=== PATIENT | male | born 1935 | race Caucasian/White ===

== ENCOUNTER 2023-01-20 15:51 | Observation (INO) | payer MEDICARE, MEDICAID ==
[~2023-01-20] VITALS: Ht 177.8 cm; Wt 82.2 kg
[2023-01-20] VITALS (12 sets, daily range): BP systolic 112–140; BP diastolic 52–66
--- NOTE | 2023-01-20 15:53 | NUR ---
PT TO ROOM 6 VIA EMS STRETCHER, REPORT RECEIVED, CALL LIGHT IN REACH, PROVIDER NOTIFIED.
[2023-01-20 16:57] LABS: BASO% 0.3 % (0-3); EOS% 0.9 % (0-8); HEMATOCRIT 37.2 % (39.0-50.0); HEMOGLOBIN 11.9 g/dl (14.0-18.0); IMMATURE GRANULOCYTES 0.7 % (0.0-5.0); LYMPH% 10.1 % (15-41); MEAN CELL VOLUME 95.4 fL CALC (80.0-100.0); MEAN CORPUSCULAR HGB 30.5 pG CALC (26.0-32.0); MONO% 12.7 % (2-13); NEUT# 11.37 thou/uL (1.82-7.42); NEUT% 75.3 % (42-76); RED BLOOD COUNT 3.9 mill/uL (4.70-6.10); RED CELL DISTRI WIDTH 17.3 % (11.5-15.5)
--- NOTE | 2023-01-20 17:08 | NUR ---
DNR SIGNED PER PT REQUEST, DR. Reinier AMATO PROVIDER AT TIME.
[2023-01-20 17:10] LABS: ALBUMIN 4.1 g/dL (3.2-5.0); ALKALINE PHOSPHATASE 101 u/l (38-126); ANION GAP 12 (6-22 (CALC)); BILIRUBIN, TOTAL 0.5 mg/dL (0.2-1.3); BUN 33 mg/dL (8-23); BUN/CREATININE RATIO 19 (12-20 (CALC)); CARBON DIOXIDE 25 mmol/l (22-30); CHLORIDE 104 mmol/l (95-108); CREATININE 1.7 mg/dL (0.7-1.3); GFR FOR AFR.AMER. 46 ML/MIN (>=60 (CALC)); GFR OTHER RACES 38 ML/MIN (>=60 (CALC)); POTASSIUM 4.9 mmol/l (3.5-5.1); SGOT/AST 31 u/l (19-48); SODIUM 136 mmol/l (137-146); TOTAL PROTEIN 6.8 g/dL (6.3-8.2)
--- NOTE | 2023-01-20 17:14 | NUR ---
Reassessment of patient completed. No distress noted. I/V FLUSED S/P FLUIDS ORDERED.
[2023-01-20] MEDS ORDERED: ASPIRINCHW 81MG PO (17:18)
[2023-01-20] MEDS ORDERED: ARICEPT10 MG PO (17:19)
[2023-01-20] MEDS ORDERED: MEMANTINE HYDRO10 MG PO (17:22)
[2023-01-20] MEDS ORDERED: EZETIMIBE PO (17:24)
[2023-01-20] MEDS ORDERED: SIMVA PO (17:24)
[2023-01-20] MEDS ORDERED: SLOW FE142 MG PO (17:24)
[2023-01-20] MEDS ORDERED: SINGULAIR10 MG PO (17:25)
[2023-01-20] MEDS ORDERED: COLACE100 MG PO (17:25)
[2023-01-20] MEDS ORDERED: IPRATROPIUM BROMIDE IN (17:26)
[2023-01-20] MEDS ORDERED: TYLENOL500 MG PO (17:27)
[2023-01-20] MEDS ORDERED: HYDROCHLOROT25 MG PO (17:28)
--- NOTE | 2023-01-20 17:53 | NUR ---
Reassessment of patient completed. No distress noted. GIVEN SUPPER MEAL.
--- NOTE | 2023-01-20 18:23 | NUR ---
IN ROOM TO COLLECT URINE, PT REFUSED, WANTS TO WAIT UNTIL HE IS IN [facility].
--- NOTE | 2023-01-20 18:59 | NUR ---
REPORT GIVEN TO ER NURSE SHWETA NETTLES.
--- NOTE | 2023-01-20 19:33 | NUR ---
REPORT RECEIEVED BY ISMAEL NETTLES. PT RESTING COMFORTABLY IN BED. V/S STABLE NO NEEDS AT THIS TIME.
[2023-01-20] MEDS ORDERED: DONEPEZIL HCL23 MG PO (20:34)
[2023-01-20] MEDS ORDERED: MEMANTINE HYDRO28 MG PO (20:35)
--- NOTE | 2023-01-20 23:09 | NUR ---
REPORT RECEIVED FROM ER NURSE. PATIENT ARRIVED TO ROOM 280 AT 2120 VIA STRETCHER. DENIES PAIN OR DISCOMFORT. RESPIRATIONS EVEN AND UNLABORED ON ROOM AIR. ORIENTED TO ROOM AND CALL LIGHT. MEDICATED PER MD ORDER. NEW ORDER RECEIVED FOR SLEEP AID PER PATIENT REQUEST. CALL LIGHT WITHIN REACH.
[2023-01-21] VITALS (10 sets, daily range): BP systolic 111–154; BP diastolic 50–76
--- NOTE | 2023-01-21 01:20 | NUR ---
PATIENT ASLEEP IN BED BUT EASILY AROUSED. RESPIRATIONS EVEN AND UNLABORED ON ROOM AIR. ABLE TO USE URINAL INDEPENDENTLY. DENIES PAIN OR DISCOMFORT. CALL LIGHT WITHIN REACH.
[2023-01-21 05:42] LABS: HEMATOCRIT 36.7 % (39.0-50.0); HEMOGLOBIN 11.9 g/dl (14.0-18.0); MEAN CELL VOLUME 94.6 fL CALC (80.0-100.0); MEAN CORPUSCULAR HGB 30.7 pG CALC (26.0-32.0); MEAN CORPUSCULAR HGB CONC 32.4 g/dL CAL (32.0-36.0); RED BLOOD COUNT 3.88 mill/uL (4.70-6.10); RED CELL DISTRI WIDTH 17.2 % (11.5-15.5)
[2023-01-21 05:45] LABS: URINE BILIRUBIN - DIPSTICK NEGATIVE (NEGATIVE); URINE BLOOD DIPSTICK NEGATIVE (NEGATIVE); URINE COLOR YELLOW; URINE GLUCOSE - DIPSTICK NEGATIVE (NEGATIVE); URINE KETONE NEGATIVE (NEGATIVE); URINE LEUK ESTERASE NEGATIVE (NEGATIVE); URINE PH 5.5 (4.5-8.0); URINE PROTEIN - DIPSTICK NEGATIVE (NEG-TRACE); URINE UROBILINOGEN - DIPSTICK 0.2 E.U./dL (0.2)
[2023-01-21 05:47] LABS: URINE NITRITE - DIPSTICK NEGATIVE (Negative)
[2023-01-21 06:01] LABS: ALBUMIN 3.7 g/dL (3.2-5.0); ALKALINE PHOSPHATASE 99 u/l (38-126); ANION GAP 9 (6-22 (CALC)); BILIRUBIN, TOTAL 0.5 mg/dL (0.2-1.3); BUN 29 mg/dL (8-23); BUN/CREATININE RATIO 23 (12-20 (CALC)); CARBON DIOXIDE 28 mmol/l (22-30); CHLORIDE 106 mmol/l (95-108); CREATININE 1.3 mg/dL (0.7-1.3); GFR FOR AFR.AMER. > 60 ML/MIN (>=60 (CALC)); GFR OTHER RACES 52 ML/MIN (>=60 (CALC)); MAGNESIUM 2.3 mg/dL (1.6-2.3); POTASSIUM 4.9 mmol/l (3.5-5.1); SGOT/AST 31 u/l (19-48); SODIUM 138 mmol/l (137-146); TOTAL PROTEIN 6.4 g/dL (6.3-8.2)
--- NOTE | 2023-01-21 06:25 | NUR ---
PATIENT AWAKE IN BED. DENIES PAIN OR DISCOMFORT. RESPIRATIONS EVEN AND UNLABORED ON ROOM AIR. CALL LIGHT WITHIN REACH.
--- NOTE | 2023-01-21 07:24 | NUR ---
REPORT RECEIVED FROM PM RN. PT RESTING IN BED. ALL SAFETY MEASURES IN PLACE. VSS. NO NEEDS AT THIS TIME.
--- NOTE | 2023-01-21 12:35 | NUR ---
PT RESTING IN BED. ATE LUNCH. ALL SAFETY MEASURES IN PLACE. VSS. NO NEEDS AT THIS TIME.
--- NOTE | 2023-01-21 16:33 | NUR ---
PT RESTING IN BED. NO CURRENT NEEDS. STATES HE IS LOOKING FORWARD TO GOING TO REHAB TO GET STRONGER. VSS. ALL SAFETY MEASURES IN PLACE.
--- NOTE | 2023-01-21 19:52 | NUR ---
PT RESTING IN BED WATCHING TV, NO SIGNS OF DISTRESS NOTED, RESP EVEN AND UNLABORED. PT ALERT AND ORIENTED X3, DISCUSSED POC, VERBALIZED UNDERSTANDING. NO EDEMA. PT HAS A SKIN TEAR TO RFA, DRESSING CDI. IVF INFUSING, ASSESSMENT COMPLETED, DENIES ANY NEEDS OR COMPLAINTS AT THIS TIME. BED ALARM FOR SAFETY, CALL LIGHT IN REACH,CONTINUE TO MONITOR.
--- NOTE | 2023-01-22 | NUR ---
PT RESTING IN BED WITH EYES CLOSED, NO SIGNS OF DISTRESS NOTED, RESP EVEN AND UNLABORED. CALL LIGHT IN REACH,CONTINUE TO MONITOR, BED ALARM FOR SAFETY.
--- NOTE | 2023-01-22 04:00 | NUR ---
PT RESTING IN BED, NO SIGNS OF DISTRESS NOTED, RESP EVEN AND UNLABORED. PT DENIES ANY NEEDS OR COMPLAINTS AT THIS TIME. CALL LIGHT IN REACH,CONTINUE TO MONITOR.
[2023-01-22 05:00] VITALS: BP 134/65
[2023-01-22 05:59] LABS: HEMATOCRIT 34.8 % (39.0-50.0); HEMOGLOBIN 11.3 g/dl (14.0-18.0); MEAN CELL VOLUME 94.6 fL CALC (80.0-100.0); MEAN CORPUSCULAR HGB 30.7 pG CALC (26.0-32.0); MEAN CORPUSCULAR HGB CONC 32.5 g/dL CAL (32.0-36.0); RED BLOOD COUNT 3.68 mill/uL (4.70-6.10); RED CELL DISTRI WIDTH 17.3 % (11.5-15.5)
[2023-01-22 06:21] LABS: ALBUMIN 3.5 g/dL (3.2-5.0); ALKALINE PHOSPHATASE 98 u/l (38-126); ANION GAP 8 (6-22 (CALC)); BILIRUBIN, TOTAL 0.4 mg/dL (0.2-1.3); BUN 23 mg/dL (8-23); BUN/CREATININE RATIO 23 (12-20 (CALC)); CARBON DIOXIDE 26 mmol/l (22-30); CHLORIDE 107 mmol/l (95-108); GFR FOR AFR.AMER. > 60 ML/MIN (>=60 (CALC)); GFR OTHER RACES > 60 ML/MIN (>=60 (CALC)); MAGNESIUM 2.3 mg/dL (1.6-2.3); POTASSIUM 4.7 mmol/l (3.5-5.1); SGOT/AST 40 u/l (19-48); SODIUM 137 mmol/l (137-146); TOTAL PROTEIN 6.1 g/dL (6.3-8.2)
--- NOTE | 2023-01-22 07:00 | NUR ---
BEDSIDE REPORT RECEIVED FROM PM NURSE. VSS. ALL SAFETY MEASURES IN PLACE. NO NEEDS AT THIS TIME.
[2023-01-22 08:08] VITALS: BP 141/71
--- NOTE | 2023-01-22 10:07 | NUR ---
PT UP TO RECLINER. PT IS A HEAVY ASSIST, BUT WAS ABLE TO WALK 3 STEPS TO THE CHAIR AND PIVOT.
--- NOTE | 2023-01-22 12:00 | NUR ---
PT RESTING IN RECLINER WATCHING TELEVISION. ALL SAFETY MEASURES IN PLACE, VSS, NO NEEDS AT THIS TIME.
--- NOTE | 2023-01-22 16:09 | NUR ---
PT RESTING IN BED WATCHING TELEVISION. ALL SAFETY MEASURES IN PLACE, VSS, NO NEEDS AT THIS TIME.
[2023-01-22 16:18] VITALS: BP 115/57
[2023-01-22 19:19] VITALS: BP 113/56
--- NOTE | 2023-01-22 20:20 | NUR ---
RECEIVED REPORT FROM DAYSHIFT NURSE. PT IS LYING IN BED . ADVISED PT OF CHANGE OF NURSE FOR THE NIGHT. PT STATES THAT HE IS NOT IN PAIN. CALL LIGHT WITHIN REACH AND SAFETY PRECAUTIONS IN PLACE.
[2023-01-23] VITALS (7 sets, daily range): BP systolic 106–148; BP diastolic 55–68
--- NOTE | 2023-01-23 00:20 | NUR ---
PT IS SLEEPING IN BED COMFORTABLY. PT SHOWS NO SIGNS OF PAIN OR DISCOMFORT AT THIS TIME. PT'S CALL LIGHT IS WITHIN REACH AND SAFETY PRECAUTIONS IN PLACE
--- NOTE | 2023-01-23 04:20 | NUR ---
PT IS SLEEPING IN BED COMFORTABLY. PT SHOWS NO SIGNS OF PAIN OR DISCOMFORT. CALL LIGHT WITHIN REACH AND SAFETY PRECAUTIONS IN PLACE.
--- NOTE | 2023-01-23 08:00 | NUR ---
PT IN BED WITH HOB UP, EATING BREAKFAST WITH SOME ASSIST. PT ALERT AND OREINTED TO SELF AND PLACE AT TIME, PT HAS NO C/O PAIN. BRUISING NOTES TO BILAT ARMS. IV SITE TO LFA INTACT WITH NS @ 10 ML/HR INFUSING. TELE ON WITH ALL LEADS ATTACHED. PT HAS URINAL AT BEDSIDE AND BEDSIDE COMMODE FOR TOILETING NEEDS. PT HAS CALL LIGHT WITHIN REACH AND SAFETY MEASURES IN PLACE AT THIS TIME.
--- NOTE | 2023-01-23 12:00 | NUR ---
PT IN BED ALERT AND OREINTED X 25, REORIENTED TO TIME. PT HAS NO CHANGE IN STATUS AT THIS TIME. NS @ 100 ML/HR INFUSING TO RFA. PT HAS CALL LIGHT WITHIN REACH AND ALL SAFETY MEASURES IN PLACE AT THIS TIME.
--- NOTE | 2023-01-23 16:00 | NUR ---
PT IN BED RESTING WITH EYES CLOSED, AWAKENED TO VOICE. PT HAS NO C/O PAIN AT THIS TIME AND NO CHANGE IN STATUS. CALL LIGHT WITHIN REACH AND ALL SAFETY MEASURES IN PLACE.
--- NOTE | 2023-01-23 20:00 | NUR ---
RECEIVED REPORT FROM NURSE AMY, PATIENT RESTING IN BED WATCHING TV, PATIENT IV ON LFA G 18 NS @ 10CC/HR INFUSING WELL, HOOKED ON TELEMETRY, LUNG SOUNDS CLEAR/DIMINISHED, SKIN TEAR NOTED ON RFA, DRESSING CDI, SCATTERED BRUISING ON BILAT FOREARAMS, BED ALRM IN PLACE, PATEINT REQUESTEDE SLEEP AID, STATED MEDICATION TAKEN YESTERDAY WAS NOT WORKING, MD AWARE.
--- NOTE | 2023-01-24 00:29 | NUR ---
PATIENT RESTING IN BED, NOTR IN DISTRESS, BREATHING UNLABORED CALL LIGHT IN REACH, BED ALARM IN PLACE.
--- NOTE | 2023-01-24 04:00 | NUR ---
PATIENT NOT IN DISTRESS, BREATHING EVEN UNLABORED, CALL LIGHT IN REACH.
[2023-01-24 05:37] VITALS: BP 133/60
[2023-01-24 06:27] LABS: HEMATOCRIT 37.2 % (39.0-50.0); HEMOGLOBIN 12.3 g/dl (14.0-18.0); MEAN CELL VOLUME 93.5 fL CALC (80.0-100.0); MEAN CORPUSCULAR HGB 30.9 pG CALC (26.0-32.0); MEAN CORPUSCULAR HGB CONC 33.1 g/dL CAL (32.0-36.0); RED BLOOD COUNT 3.98 mill/uL (4.70-6.10); RED CELL DISTRI WIDTH 17.1 % (11.5-15.5)
[2023-01-24 06:28] LABS: ALBUMIN 3.5 g/dL (3.2-5.0); ALKALINE PHOSPHATASE 108 u/l (38-126); ANION GAP 10 (6-22 (CALC)); BILIRUBIN, TOTAL 0.4 mg/dL (0.2-1.3); BUN 22 mg/dL (8-23); BUN/CREATININE RATIO 19 (12-20 (CALC)); CARBON DIOXIDE 25 mmol/l (22-30); CHLORIDE 105 mmol/l (95-108); CREATININE 1.1 mg/dL (0.7-1.3); GFR FOR AFR.AMER. > 60 ML/MIN (>=60 (CALC)); GFR OTHER RACES > 60 ML/MIN (>=60 (CALC)); MAGNESIUM 2.2 mg/dL (1.6-2.3); POTASSIUM 4.9 mmol/l (3.5-5.1); SGOT/AST 28 u/l (19-48); SODIUM 135 mmol/l (137-146); TOTAL PROTEIN 5.9 g/dL (6.3-8.2)
--- NOTE | 2023-01-24 07:00 | NUR ---
BEDSIDE REPORT RECIEVED, FLUIDS AT [facility], NO S/S OF DISTRESS, NO NEEDS AT THIS TIME,WHITEBOARD UPDATED. PATIENT SAFETY MEASURES IN PLACE.
[2023-01-24 07:17] VITALS: BP 104/44
[2023-01-24 11:14] VITALS: BP 103/53
--- NOTE | 2023-01-24 12:00 | NUR ---
PATIENT IN CHAIR, WALKED WITH PT, TOLERATED WELL, NO S/S OF DISTRESS, PATIENT SAFETY MEASURES IN PLACE.
--- NOTE | 2023-01-24 14:09 | NUR ---
NURSE TO NURSE REPORT GIVEN TO BETZAIDA AT [facility].
--- NOTE | 2023-01-24 15:25 | NUR ---
PATIENT LEFT VIA WHEELCHAIR IN STABLE CONDITION.
== END 2023-01-24 15:19 ==
LOC: ED 15:51 → ED-I 17:40 → ED 18:39 → MS2 18:40
PROVIDERS: Nurse Practitioner; ADMIT Internal Medicine; ATTEND Internal Medicine
DX: R53.1 Weakness (principal); R62.7 Adult failure to thrive; I95.9 Hypotension, unspecified; N17.9 Acute kidney failure, unspecified; D72.829 Elevated white blood cell count, unspecified; I10 Essential (primary) hypertension; F03.90 Unspecified dementia, unspecified severity, without behavioral disturbance, psychotic disturbance, mood disturbance, and anxiety; I25.10 Atherosclerotic heart disease of native coronary artery without angina pectoris; Z95.5 Presence of coronary angioplasty implant and graft; Z87.891 Personal history of nicotine dependence; Z91.81 History of falling
CPT/HCPCS: J1650

== ENCOUNTER 2023-02-04 04:36 | Observation (INO) | payer MEDICARE, MEDICAID ==
[2023-02-04] VITALS (10 sets, daily range): BP systolic 114–145; BP diastolic 57–71
[~2023-02-04] VITALS: Ht 177.8 cm; Wt 80.0 kg
[~2023-02-04 04:36] MED LIST: ARICEPT10 MG PO; ASPIRINCHW 81MG PO; COLACE100 MG PO; DONEPEZIL HCL23 MG PO; EZETIMIBE PO; HYDROCHLOROT25 MG PO; IPRATROPIUM BROMIDE IN; MEMANTINE HYDRO10 MG PO; MEMANTINE HYDRO28 MG PO; SIMVA PO; SINGULAIR10 MG PO; SLOW FE142 MG PO; TYLENOL500 MG PO
[2023-02-04 05:10] LABS: BASO% 0.8 % (0-3); EOS% 3.2 % (0-8); HEMATOCRIT 35.4 % (39.0-50.0); HEMOGLOBIN 11.4 g/dl (14.0-18.0); IMMATURE GRANULOCYTES 1.3 % (0.0-5.0); LYMPH% 17.3 % (15-41); MEAN CELL VOLUME 94.9 fL CALC (80.0-100.0); MEAN CORPUSCULAR HGB 30.6 pG CALC (26.0-32.0); MEAN CORPUSCULAR HGB CONC 32.2 g/dL CAL (32.0-36.0); MONO% 12.3 % (2-13); NEUT# 7.83 thou/uL (1.82-7.42); NEUT% 65.1 % (42-76); RED BLOOD COUNT 3.73 mill/uL (4.70-6.10); RED CELL DISTRI WIDTH 17.1 % (11.5-15.5)
[2023-02-04 05:40] LABS: ALBUMIN 4.2 g/dL (3.2-5.0); BILIRUBIN, TOTAL 0.5 mg/dL (0.2-1.3); CREATININE 1.9 mg/dL (0.7-1.3); MAGNESIUM 2.6 mg/dL (1.6-2.3); POTASSIUM 4.3 mmol/l (3.5-5.1)
[2023-02-04 06:10] LABS: URINE BILIRUBIN - DIPSTICK NEGATIVE (NEGATIVE); URINE BLOOD DIPSTICK NEGATIVE (NEGATIVE); URINE COLOR YELLOW; URINE GLUCOSE - DIPSTICK NEGATIVE (NEGATIVE); URINE KETONE NEGATIVE (NEGATIVE); URINE LEUK ESTERASE NEGATIVE (NEGATIVE); URINE PH 5.5 (4.5-8.0); URINE PROTEIN - DIPSTICK NEGATIVE (NEG-TRACE); URINE SPECIFIC GRAVITY >=1.030; URINE UROBILINOGEN - DIPSTICK 0.2 E.U./dL (0.2)
[2023-02-04 06:10] LABS: TSH, 3RD GENERATION 2.54 uIU/mL (0.47 - 4.68)
[2023-02-04 06:16] LABS: URINE NITRITE - DIPSTICK NEGATIVE (Negative)
[2023-02-05 04:11] VITALS: BP 135/68
[2023-02-05 05:02] VITALS: BP 135/68
[2023-02-05 05:11] LABS: EOS% 5.4 % (0-8); HEMATOCRIT 34.2 % (39.0-50.0); IMMATURE GRANULOCYTES 1.1 % (0.0-5.0); LYMPH% 28.2 % (15-41); MEAN CELL VOLUME 93.4 fL CALC (80.0-100.0); MEAN CORPUSCULAR HGB 30.1 pG CALC (26.0-32.0); MEAN CORPUSCULAR HGB CONC 32.2 g/dL CAL (32.0-36.0); MONO% 12.2 % (2-13); NEUT# 4.15 thou/uL (1.82-7.42); NEUT% 52.1 % (42-76); RED BLOOD COUNT 3.66 mill/uL (4.70-6.10); RED CELL DISTRI WIDTH 17.1 % (11.5-15.5)
[2023-02-05 05:24] LABS: ANION GAP 9 (6-22 (CALC)); BUN 30 mg/dL (8-23); BUN/CREATININE RATIO 23 (12-20 (CALC)); CARBON DIOXIDE 28 mmol/l (22-30); CHLORIDE 106 mmol/l (95-108); CREATININE 1.3 mg/dL (0.7-1.3); GFR FOR AFR.AMER. > 60 ML/MIN (>=60 (CALC)); GFR OTHER RACES 52 ML/MIN (>=60 (CALC)); MAGNESIUM 2.6 mg/dL (1.6-2.3); POTASSIUM 4.8 mmol/l (3.5-5.1); SODIUM 138 mmol/l (137-146)
[2023-02-05 07:12] VITALS: BP 135/71
[2023-02-05 15:17] VITALS: BP 144/67
[2023-02-05 20:42] VITALS: BP 140/69
[2023-02-06 04:21] VITALS: BP 143/79
[2023-02-06 05:06] LABS: EOS% 3.8 % (0-8); HEMATOCRIT 36.9 % (39.0-50.0); IMMATURE GRANULOCYTES 1.2 % (0.0-5.0); LYMPH% 18.6 % (15-41); MEAN CELL VOLUME 92.9 fL CALC (80.0-100.0); MEAN CORPUSCULAR HGB 30.2 pG CALC (26.0-32.0); MEAN CORPUSCULAR HGB CONC 32.5 g/dL CAL (32.0-36.0); MONO% 12.3 % (2-13); NEUT# 6.33 thou/uL (1.82-7.42); NEUT% 63.1 % (42-76); RED BLOOD COUNT 3.97 mill/uL (4.70-6.10); RED CELL DISTRI WIDTH 16.9 % (11.5-15.5)
[2023-02-06 05:25] LABS: ANION GAP 11 (6-22 (CALC)); BUN 23 mg/dL (8-23); BUN/CREATININE RATIO 19 (12-20 (CALC)); CARBON DIOXIDE 26 mmol/l (22-30); CHLORIDE 104 mmol/l (95-108); CREATININE 1.2 mg/dL (0.7-1.3); GFR FOR AFR.AMER. > 60 ML/MIN (>=60 (CALC)); GFR OTHER RACES 57 ML/MIN (>=60 (CALC)); MAGNESIUM 2.3 mg/dL (1.6-2.3); POTASSIUM 4.9 mmol/l (3.5-5.1); SODIUM 136 mmol/l (137-146)
[2023-02-06 06:43] VITALS: BP 118/75
[2023-02-06 14:55] VITALS: BP 117/59
[2023-02-06 20:09] VITALS: BP 114/60
[2023-02-07 04:33] VITALS: BP 114/61
[2023-02-07 07:00] VITALS: BP 114/64
== END 2023-02-07 13:00 ==
LOC: ED 04:36 → ED-I 07:29 → MS2 07:40 → ED 07:40 → MS2 07:40
PROVIDERS: Family Medicine; ADMIT Internal Medicine; ATTEND Internal Medicine
DX: R53.1 Weakness (principal); E86.0 Dehydration; N17.9 Acute kidney failure, unspecified; R62.7 Adult failure to thrive; F03.918 Unspecified dementia, unspecified severity, with other behavioral disturbance; F03.93 Unspecified dementia, unspecified severity, with mood disturbance; K59.00 Constipation, unspecified; I10 Essential (primary) hypertension; I25.10 Atherosclerotic heart disease of native coronary artery without angina pectoris; M19.90 Unspecified osteoarthritis, unspecified site; Z87.891 Personal history of nicotine dependence; Z60.2 Problems related to living alone; Z95.5 Presence of coronary angioplasty implant and graft; Z20.822 Contact with and (suspected) exposure to COVID-19
CPT/HCPCS: J1650

== ENCOUNTER 2023-04-11 06:32 | Emergency (ER) | payer MEDICARE, MEDICAID ==
[2023-04-11] VITALS (14 sets, daily range): BP systolic 116–152; BP diastolic 63–83
[~2023-04-11] VITALS: Ht 177.8 cm; Wt 75.0 kg
[2023-04-11 07:17] LABS: EOS% 3.6 % (0-8); HEMATOCRIT 34.8 % (39.0-50.0); HEMOGLOBIN 11.2 g/dl (14.0-18.0); IMMATURE GRANULOCYTES 2.7 % (0.0-5.0); LYMPH% 22.2 % (15-41); MEAN CELL VOLUME 94.1 fL CALC (80.0-100.0); MEAN CORPUSCULAR HGB 30.3 pG CALC (26.0-32.0); MEAN CORPUSCULAR HGB CONC 32.2 g/dL CAL (32.0-36.0); MONO% 13.7 % (2-13); NEUT# 4.37 thou/uL (1.82-7.42); NEUT% 56.8 % (42-76); RED BLOOD COUNT 3.7 mill/uL (4.70-6.10); RED CELL DISTRI WIDTH 16.6 % (11.5-15.5)
[2023-04-11 07:34] LABS: ALBUMIN 3.5 g/dL (3.2-5.0); BILIRUBIN, TOTAL 0.6 mg/dL (0.2-1.3); CREATININE 1.5 mg/dL (0.7-1.3); POTASSIUM 4.7 mmol/l (3.5-5.1); TOTAL PROTEIN 6.3 g/dL (6.3-8.2)
[2023-04-11 10:04] LABS: URINE BILIRUBIN - DIPSTICK Negative (NEGATIVE); URINE BLOOD DIPSTICK Negative (NEGATIVE); URINE GLUCOSE - DIPSTICK Negative (NEGATIVE); URINE KETONE Negative (NEGATIVE); URINE LEUK ESTERASE Negative (NEGATIVE); URINE NITRITE - DIPSTICK Negative (Negative); URINE PROTEIN - DIPSTICK Negative (NEG-TRACE); URINE UROBILINOGEN - DIPSTICK 0.2 E.U./dL (0.2)
[2023-04-11 10:07] LABS: URINE COLOR Yellow
== END 2023-04-11 12:08 | disposition home or self-care (01) ==
LOC: ED 06:32
PROVIDERS: Emergency Medicine
DX: R30.0 Dysuria (principal); E86.0 Dehydration